=== PATIENT | male | born 1990 | race Caucasian/White ===

== ENCOUNTER 2016-08-13 01:47 | Emergency (ER) | payer BC ==
[~2016-08-13] VITALS: Ht 180.3 cm; Wt 83.9 kg
--- NOTE | 2016-08-13 01:49 | NUR ---
PT WALKED INTO ER C/O SORE THROAT X3 MONTHS. SAW PMD AND ENT FOR SORE THROAT. WAS PESCRIBED AUGMENTIN BID BUT STOP TAKING IT. CAME INTO TODAY FOR FEVER X1 DAY WITH JANINE CARO...PT IS ALERT, ORIENTED X 4, MD AT BEDSIDE....
[2016-08-13] MEDS: ALBUTEROL SULFATE 2.5 MG/3 ML NEBU NEB ONE (02:13)
--- NOTE | 2016-08-13 02:52 | NUR ---
Patient discharged to home in stable conditon. Written and verbal after care instructions given. Patient verbalizes understanding of instructions. Pt walked out of ER unassisted with mother and belongings at side...
[2016-08-13 02:53] VITALS: BP 124/81
== END 2016-08-13 02:54 | disposition home or self-care (01) ==
LOC: ER 01:52
DX: J40 Bronchitis, not specified as acute or chronic (principal); J31.2 Chronic pharyngitis
CPT/HCPCS: 94640; 99283; A4663

== ENCOUNTER 2022-05-08 17:27 | Emergency (ER) | payer BC, MEDICAID ==
[~2022-05-08] VITALS: Ht 180.3 cm; Wt 90.7 kg
--- NOTE | 2022-05-08 18:15 | NUR ---
Pt ambulatory into ER, states ground level slip and fall earlier today with no LOC.
[2022-05-08] MEDS ORDERED: METHOCARBAMOL 500 MG TABLET PO ONE (19:00)
[2022-05-08] MEDS ORDERED: NAPROXEN 500 MG TABLET PO ONE (19:00)
[2022-05-08] MEDS ORDERED: METHOCARBAMOL 500 MG TABLET ONE (19:24)
[2022-05-08] MEDS ORDERED: NAPROXEN 500 MG TABLET ONE (19:24)
[2022-05-08] MEDS ORDERED: METH-806 PO (19:36)
[2022-05-08 19:58] VITALS: BP 158/94
--- NOTE | 2022-05-08 19:58 | NUR ---
Patient discharged to home in stable condition. Written and verbal after care instructions given. Patient verbalizes understanding of instructions. Stressed follow up or return to ER for worsening s/s.
== END 2022-05-08 19:59 | disposition home or self-care (01) ==
LOC: ER 17:27
DX: M25.552 Pain in left hip (principal); M25.551 Pain in right hip; W01.0XXA Fall on same level from slipping, tripping and stumbling without subsequent striking against object, initial encounter; Y92.019 Unspecified place in single-family (private) house as the place of occurrence of the external cause
CPT/HCPCS: 72170; A4663